=== PATIENT | female | born 1975 | race Caucasian/White ===

== ENCOUNTER 2019-09-07 21:19 | Emergency (ER) | payer OTHER ==
[~2019-09-07] VITALS: Ht 152.4 cm; Wt 76.8 kg
--- NOTE | 2019-09-07 21:22 | PHYS DOC ---
Past History Past Medical History: No Pertinent History, Diabetes, UTI Past Surgical History: No Surgical History Smoking: Non-smoker Alcohol Use: None Drug Use: None General Adult HPI: HPI: ".. I was chasing a chicken... You see I got this new brown chicken... she does not have a name yet... she lays really big brown eggs... she got out when I was feeding.. and I was trying to justyn her back in... and there is this burn pile..and I stepped on a nail or something .. It went all the way through my shoe, socks in into my foot... and stepped on a nail....about noon.. but my foot gotten swollen and more painful.. and I don't remember my last tetanus..." Patient is a 43 year old female who presents with above hx and complaints of Lt. foot injury. Patient has an injury between first and second toll on the ball of her left foot. Area is now swollen and red. Patient does not remember her last tetanus. Area of the puncture wound appears to be soiled and has a foreign body just under the skin. Patient does have a history of diabetes and is controlled with metformin. Patient follows with Dr. Mora. No recent travel or specific ill contacts. Patient was wearing tennis shoes.. Review of Systems: Review of Systems: Constitutional: Denies fever or chills Eyes: Denies change in visual acuity HENT: Denies nasal congestion or sore throat Respiratory: Denies cough or shortness of breath Cardiovascular: Denies chest pain or edema GI: Denies abdominal pain, nausea, vomiting, bloody stools or diarrhea : Denies dysuria Musculoskeletal: Denies back pain or joint pain Integument: Denies rash Neurologic: Denies headache, focal weakness or sensory changes . Complaints of puncture wound to Lt. Foot. Endocrine: Denies polyuria or polydipsia Lymphatic: Denies swollen glands Psychiatric: Denies depression or anxiety Heart Score: Risk Factors: Risk Factors: DM, Current or recent (<one month) smoker, HTN, HLP, family history of CAD, obesity. Risk Scores: Score 0 - 3: 2.5% MACE over next 6 weeks - Discharge Home Score 4 - 6: 20.3% MACE over next 6 weeks - Admit for Clinical Observation Score 7 - 10: 72.7% MACE over next 6 weeks - Early Invasive Strategies Family History: Family History: Diabetes Current Medications: Current Meds: See nursing for home meds Allergies: Allergies: Allergies Coded Allergies Type Severity Reaction Last Updated Verified No Known Drug Allergies 11/08/13 No Physical Exam: PE: Constitutional: Moderate acute distress, non-toxic appearance. [] HENT: Normocephalic, atraumatic, bilateral external ears normal, oropharynx moist, no oral exudates, nose normal. [] Eyes: PERRLA, EOMI, conjunctiva normal, no discharge. [] Neck: Normal range of motion, no tenderness, supple, no stridor. [] Cardiovascular:Heart rate regular rhythm, no murmur [] Lungs & Thorax: Bilateral breath sounds clear to auscultation [] Abdomen: Bowel sounds normal, soft, no tenderness, no masses, no pulsatile masses. [] Obese Skin: Warm, dry, no erythema, no rash. [] Back: No tenderness, no CVA tenderness. [] Extremities: No tenderness, no cyanosis, no clubbing, ROM intact, no edema. [] Except complaints of Lt foot puncture wound, edema and pain. Neurologic: Alert and oriented X 3, normal motor function, normal sensory functi on, no focal deficits noted. [] Psychologic: Affect normal, judgement normal, mood normal. [] EKG: EKG: [] Radiology/Procedures: Radiology/Procedures: [][place] [address] IMAGING REPORT Signed PATIENT: VARGHESE SANTO ACCOUNT: [id number] : 1975 LOCATION: ER AGE: 43 SEX: F EXAM STATUS: REG ER ORD. PHYSICIAN: PREMA REAGAN MD REASON: Stepped on foregin body today, possibly nail PROCEDURE: FOOT LEFT 3V Study: CR FOOT LEFT 3V Indication: Foreign body. Comparison: None. Findings: Bandaging material seen along the forefoot. No acute fracture. No retained radiopaque foreign body. Small plantar calcaneal spur. Achilles insertion enthesophyte formation. Chronic ossific foci at the tip of the lateral malleolus in keeping with the sequela of prior trauma. Mild early arthrosis at the great toe MTP joint. Impression: No acute osseous abnormality or retained radiopaque foreign body. Electronically signed by: DANIELE HURLEY MD (09/07/2019 10:38 PM) [id number] DICTATED AND SIGNED BY: DANIELE HURLEY MD DATE: 09/07/19 2238 CC: PREMA REAGAN MD; LUBNA YEE MD ~ Course & Med Decision Making: Course & Med Decision Making Pertinent Labs and Imaging studies reviewed. (See chart for details) Wound care-foot washed with surgical water. Patient puncture site injected with 2% lidocaine. Use of a skin biopsy punch removed foreign body that was just under the skin. Patient given a dose of Rocephin 1 g. Bactrim DS. Patient's tetanus was updated. Patient to keep foot elevated take Bactrim DS twice a day. Soak foot 4 times a day and very warm salt water or Epson salts. Apply Polysporin to puncture site. Patient wear only white socks. Patient follow-up primary care. Patient return if any concerns. Impression: 1. Puncture wound with foreign body 2. UTI [] Dragon Disclaimer: Dragon Disclaimer: This electronic medical record was generated, in whole or in part, using a voice recognition dictation system. Departure Departure: Disposition: 01 HOME/RESIDENCE PRIOR TO ADM Condition: STABLE Referrals: LUBNA YEE MD (PCP) Scripts Sulfamethoxazole/Trimethoprim (BACTRIM DS TABLET) 1 Each Tablet 1 TAB PO BID for puncture for 10 Days, #20 TAB 0 Refills Prov: PREMA REAGAN MD 09/07/19 Justification of Admission: Justification of Admission: Justification of Admission Dx: N/A Dragon Disclaimer This chart was dictated in whole or in part using Voice Recognition software in a busy, high-work load, and often noisy Emergency Department environment. It may contain unintended and wholly unrecognized errors or omissions. PREMA REAGAN MD Sep 07, 2019 21:22
[2019-09-07 21:27] VITALS: BP 133/71
[2019-09-07] MEDS ORDERED: SMZ/TMP 800/160MG TABLET. PO ONE (21:45)
[2019-09-07] MEDS ORDERED: cefTRIAXone IM 1 GM VIAL IM ONE (21:45)
[2019-09-07] MEDS ORDERED: LIDOCAINE 2%/EPI 1:100,000 20 ML VIAL. IJ ONE (21:45)
[2019-09-07] MEDS ORDERED: DIPH,PERTUSS(ACELL),TET VAC/PF 0.5 ML SYRINGE. VAX IM ONE (21:45)
[2019-09-07] MEDS ORDERED: TETANUS AND DIPHTHERIA TOX/PF 0.5 ML VIAL. VAX IM ONE (21:45)
[2019-09-07 22:23] LABS: BARBITURATES NEG (NEG); BENZODIAZEPINES NEG (NEG); CANNABINOIDS NEG (NEG); COCAINE NEG (NEG); METHADONE NEG (NEG); OPIATES NEG (NEG); PHENCYCLIDINE NEG (NEG)
[2019-09-07 22:26] LABS: AMPHETAMINE/METHAMPHETAMINE NEG (NEG)
[2019-09-07] MEDS ORDERED: SULF1TAB24 PO (22:33)
[2019-09-07 22:36] LABS: BILIRUBIN,URINE NEG (NEG); CLARITY,URINE HAZY; COLOR,URINE YELLOW; GLUCOSE,URINE NEG (NEG); NITRITE,URINE NEG (NEG)
[2019-09-07 22:37] LABS: BACTERIA,URINE MOD /HPF (0-FEW); SQUAMOUS EPITHELIAL CELL,UR MANY /LPF; WBC,URINE 20-40 /HPF (0-4)
--- NOTE | 2019-09-07 22:41 | RAD ---
Study: CR FOOT LEFT 3V Indication: Foreign body. Comparison: None. Findings: Bandaging material seen along the forefoot. No acute fracture. No retained radiopaque foreign body. Small plantar calcaneal spur. Achilles insertion enthesophyte formation. Chronic ossific foci at the tip of the lateral malleolus in keeping with the sequela of prior trauma. Mild early arthrosis at the great toe MTP joint. Impression: No acute osseous abnormality or retained radiopaque foreign body. Electronically signed by: DANIELE HURLEY MD (09/07/2019 10:38 PM) [id number]
== END 2019-09-07 22:59 | disposition home or self-care (01) ==
LOC: ER 21:19
DX: S91.342A Puncture wound with foreign body, left foot, initial encounter (principal); W45.0XXA Nail entering through skin, initial encounter; Y93.02 Activity, running; Y92.017 Garden or yard in single-family (private) house as the place of occurrence of the external cause; Y99.8 Other external cause status
CPT/HCPCS: 11104; 36415; 73630; 80307; 81001; 81025; 87086; 90471; 90714; 96372; 99284; J0696